=== PATIENT | male | born 1960 | race Caucasian/White ===

== ENCOUNTER → 2024-05-20 06:29 | Day surgery (SDC) | payer OTHER, SELFPAY | LOC: GI 06:29 | PROVIDERS: ATTENDING PHYSICIAN Internal Medicine Gastroenterology | DX: Z12.11 Encounter for screening for malignant neoplasm of colon (principal); K64.8 Other hemorrhoids; K57.30 Diverticulosis of large intestine without perforation or abscess without bleeding; Z86.010 Personal history of colon polyps | CPT/HCPCS: G0105 ==

== ENCOUNTER → 2024-05-24 16:37 | Outpatient (REF) | payer OTHER, SELFPAY | LOC: RAD 16:37 | PROVIDERS: ATTENDING PHYSICIAN Physician Assistant; FAMILY PHYSICIAN Family Medicine | DX: M79.602 Pain in left arm (principal); M54.9 Dorsalgia, unspecified; M25.511 Pain in right shoulder; I10 Essential (primary) hypertension; G89.29 Other chronic pain; M25.551 Pain in right hip; M25.552 Pain in left hip; M25.512 Pain in left shoulder | CPT/HCPCS: 71046; 72050; 73030; 73523 ==

== ENCOUNTER → 2024-07-19 11:38 | Outpatient (REF) | payer OTHER, SELFPAY | LOC: HWRAD 11:38 | PROVIDERS: ATTENDING PHYSICIAN Surgery Vascular Surgery; FAMILY PHYSICIAN Family Medicine | DX: I71.43 Infrarenal abdominal aortic aneurysm, without rupture (principal) | CPT/HCPCS: 74174; Q9967 ==

== ENCOUNTER 2024-07-30 06:17 | Day surgery (SDC) | payer OTHER, SELFPAY ==
--- NOTE | 2024-07-24 17:21 | PTCARENOTE ---
Abn ECG, Dr. Ruggiero notified, no additional requests.
[2024-07-25 12:38] VITALS: BMI 25.1
[2024-07-25 14:13] LABS: Hematocrit 34.2 % (39.0-52.0); Hemoglobin 12.3 g/dL (13.0-18.0); Mean Corpuscular Hgb 33.3 pg (27.0-31.0); Mean Corpuscular Volume 92.7 fL (80.0-94.0); Mean Platelet Volume 9.9 fL (7.4-10.4); Platelet Count 286 10^3/uL (130-400); Red Blood Cell Count 3.69 10^6/uL (4.70-6.10); Red Cell Dist. Width 12.2 % (11.5-14.5); White Blood Cell Count 5.9 10^3/uL (4.8-10.8)
[2024-07-30 10:25] VITALS: BMI 25.1
[2024-07-30 10:32] VITALS: BP 169/98
[2024-07-30] MEDS: CELEBREX 200 MG PO (10:48)
[2024-07-30] MEDS: TYLENOL 1000 MG PO (10:48)
[2024-07-30 14:45] VITALS: BP 136/77; BP 169/98
[2024-07-30 14:46] VITALS: BP 136/77
[2024-07-30 15:25] VITALS: BP 144/86
--- NOTE | 2024-07-30 15:35 | SUR.PHASEI ---
no pain in pacu , vss, no nausea, anxious for discharge - ' I am not use to sitting around'. Dr Padilla visits, questions answered, reviewed surgery and plan of care and need to wear sling for 4 weeks.
[2024-07-30 15:40] VITALS: BP 148/96
[2024-07-30 15:55] VITALS: BP 147/93
== END 2024-07-30 16:35 | disposition home or self-care (01) ==
LOC: SDS 06:17
PROVIDERS: ATTENDING PHYSICIAN Specialist; FAMILY PHYSICIAN Family Medicine
DX: M75.111 Incomplete rotator cuff tear or rupture of right shoulder, not specified as traumatic (principal); M75.41 Impingement syndrome of right shoulder
CPT/HCPCS: 29827; 29826; 29824; 36415; 85027

== ENCOUNTER → 2024-08-08 14:48 | Outpatient (REF) | payer OTHER, SELFPAY | LOC: DHSLP 14:48 | PROVIDERS: ATTENDING PHYSICIAN Internal Medicine Critical Care Medicine; FAMILY PHYSICIAN Family Medicine | DX: G47.33 Obstructive sleep apnea (adult) (pediatric) (principal) | CPT/HCPCS: 95800 ==

== ENCOUNTER → 2024-12-09 14:32 | Outpatient (REF) | payer OTHER, SELFPAY | LOC: RCS 14:32 | PROVIDERS: ATTENDING PHYSICIAN Otolaryngology Facial Plastic Surgery; REFERRING PHYSICIAN Family Medicine | DX: Z01.818 Encounter for other preprocedural examination (principal); G47.33 Obstructive sleep apnea (adult) (pediatric) | CPT/HCPCS: 93005 ==

== ENCOUNTER 2025-09-12 06:21 | Day surgery (SDC) | payer OTHER, SELFPAY ==
[2025-08-29 13:33] VITALS: BMI 24.6
[2025-08-29 14:40] LABS: Hematocrit 40.3 % (39.0-52.0); Hemoglobin 13.7 g/dL (13.0-18.0); Mean Corp Hgb Conc. 34.0 g/dL (33.0-37.0); Mean Corpuscular Volume 97.3 fL (80.0-94.0); Platelet Count 248 10^3/uL (130-400); Red Cell Dist. Width 12.4 % (11.5-14.5)
[2025-08-29 14:59] LABS: ALT (SGPT) 25 U/L (0-50); AST (SGOT) 36 U/L (17-59); Albumin 4.9 g/dl (3.5-5.0); Alkaline Phosphatase 98 U/L (38-126); Blood Urea Nitrogen 10 mg/dl (9-20); Calcium 9.9 mg/dl (8.4-10.2); Carbon Dioxide 30 mmol/L (22-30); Chloride 97 mmol/L (98-107); Estimated Creatinine Clearance 91 ml/min; Glucose 101 mg/dl (70-99); Potassium 5.5 mmol/L (3.5-5.1); Sodium 133 mmol/L (135-145); Total Protein 8.5 g/dl (6.3-8.2); eGFR > 60.00
--- NOTE | 2025-09-05 12:37 | PTCARENOTE ---
Loida in office made aware of K 5.5.
[2025-09-12] VITALS (7 sets, daily range): BP systolic 131–157; BP diastolic 75–99; BMI 24.6
[2025-09-12] MEDS: NORMOSOL-R/PLASMALYTE-A 1000 IV (08:47)
== END 2025-09-12 13:36 | disposition home or self-care (01) ==
LOC: SDS 06:21
PROVIDERS: ATTENDING PHYSICIAN Otolaryngology Facial Plastic Surgery; FAMILY PHYSICIAN Family Medicine
DX: G47.33 Obstructive sleep apnea (adult) (pediatric) (principal)
CPT/HCPCS: 64582; 36415; 71045; 80053; 85027; 93005; C1767; C1778